=== PATIENT | male | born 1955 | race Caucasian/White ===

== ENCOUNTER 2019-08-18 20:58 | Emergency (ER) | payer MEDICARE, OTHER ==
[2019-08-18] MEDS ORDERED: Acetaminophen/oxyCODONE 325-5 MG Tab PO PRN (21:30)
--- NOTE | 2019-08-18 21:33 | EDM.PDOC ---
ED HPI GENERAL MEDICAL PROBLEM - General Chief Complaint: Upper Extremity Injury/Pain Stated Complaint: LEFT ARM INJURY FROM FALL Time Seen by Provider: 08/18/19 21:26 Source of Information: Reports: Patient, Family, RN Notes Reviewed History Limitations: Reports: No Limitations - History of Present Illness INITIAL COMMENTS - FREE TEXT/NARRATIVE: 64-year-old gentleman presents emergency department a complaint of left arm pain , he injured himself when he slipped on the ice leaving the gas station fell into his truck bumper had a bit of a twisting injury and fell predominantly on the humerus left arm, he has full range of motion of his digits is complaining of pain mid shaft sensation is intact no shoulder pain no head injury no loss of consciousness does admit to consuming alcohol this evening left upper arm pain Pain Score (Numeric/FACES): 9 - Related Data Allergies Allergy/AdvReac Type Severity Reaction Status Date / Time amoxicillin [From Augmentin] Allergy Facial Verified 08/18/19 21:15 Swelling clavulanic acid Allergy Facial Verified 08/18/19 21:15 [From Augmentin] Swelling Home Meds: Home Meds Aspirin 1 tab PO DAILY 08/18/19 [History] Diltiazem HCl [Diltiazem 24Hr Cd] 1 tab PO DAILY 08/18/19 [History] Furosemide [Lasix] 1 tab PO DAILY 08/18/19 [History] Propranolol [Inderal] 1 tab PO DAILY 08/18/19 [History] buPROPion [Wellbutrin] 1 tab PO DAILY 08/18/19 [History] Past Medical History Cardiovascular History: Reports: Afib, Heart Failure Respiratory History: Reports: COPD Musculoskeletal History: Reports: Fracture - Past Surgical History GI Surgical History: Reports: Hernia, Inguinal Social & Family History - Tobacco Use Smoking Status *Q: Never Smoker - Alcohol Use Alcohol Use History: Yes Number of Drinks Per Day: 2 Review of Systems - Review of Systems Review Of Systems: See Below Respiratory: Reports: No Symptoms Cardiovascular: Reports: No Symptoms GI/Abdominal: Reports: No Symptoms Musculoskeletal: Reports: Arm Pain ED EXAM, GENERAL - Physical Exam Exam: See Below Free Text/Narrative:: Examination of the left arm I do appreciate some bruising midshaft there is tenderness midshaft there is no tenderness at the shoulder no tenderness the elbow full range of motion of the wrist and all digits radial pulses +2 sensation is intact Exam Limited By: No Limitations General Appearance: Alert, WD/WN, No Apparent Distress Respiratory/Chest: No Respiratory Distress Course - Vital Signs Last Recorded V/S: Last Vital Signs Temp 96.7 F L 08/18/19 21:25 Pulse 75 08/18/19 21:25 Resp 16 08/18/19 21:25 BP 125/95 H 08/18/19 21:25 Pulse Ox 94 L 08/18/19 21:25 - Orders/Labs/Meds Orders: Active Orders 24 hr Category Date Time Status Humerus Lt [CR] Stat Exams 08/18/19 21:30 Taken Meds: Medications Discontinued Medications Generic Name Dose Route Start Last Admin Trade Name Freq PRN Reason Stop Dose Admin Oxycodone/Acetaminophen 1 tab 08/18/19 21:30 08/18/19 21:51 Percocet 325-5 Mg PO 1 tab ONETIME PRN Administration Pain Departure - Departure Time of Disposition: 21:56 Disposition: Home, Self-Care 01 Condition: Fair Clinical Impression: Left humeral fracture Qualifiers: Encounter type: initial encounter Humerus Location: proximal Fracture type: closed Fracture morphology: torus Qualified Code(s): S42.272A - Torus fracture of upper end of left humerus, initial encounter for closed fracture - Discharge Information Instructions: Humerus Fracture Treated With Immobilization, [id number] Referrals: PCP,None [Primary Care Provider] - Forms: ED Department Discharge Additional Instructions: Continue to use the shoulder immobilizer, use Percocet as needed for pain control, please contact your orthopedic provider on Tuesday, call or return to the emergency department worsening of symptoms Sepsis Event Note - Evaluation Sepsis Screening Result: No Definite Risk - Focused Exam Vital Signs: Vital Signs Temp Pulse Resp BP Pulse Ox 08/18/19 21:25 96.7 F L 75 16 125/95 H 94 L 08/18/19 21:12 96.7 F L 75 16 125/95 H 94 L Date Exam was Performed: 08/18/19 Time Exam was Performed: 21:54 - My Orders Last 24 Hours: My Active Orders 08/18/19 21:30 Humerus Lt [CR] Stat - Assessment/Plan Last 24 Hours: My Active Orders 08/18/19 21:30 Humerus Lt [CR] Stat Plan: Assessment Acuity = acute Site and laterality = left humeral head fracture Etiology = secondary to fall Manifestations = pain Location of injury = Home Lab values = x-ray describes fracture above Plan Prescription written for Percocet 5/325 1 tab p.o. 3 times daily PRN total #20 disc film was provided he will follow-up with his orthopedics upon return home in 2 days he is placed in the posterior splint This note was dictated using [employer] voice recognition software please call with any questions on syntax or grammar.
[2019-08-18] MEDS ORDERED: HYDROmorphone 1 MG/ML Syringe ONE (22:06)
[2019-08-18] MEDS ORDERED: HYDROmorphone 1 MG/ML Syringe IM ONE (23:04)
--- NOTE | 2019-08-20 09:36 | CR ---
Humerus Lt CLINICAL HISTORY: Pain, fall FINDINGS: There is a comminuted minimally displaced fracture the proximal humerus and greater tubercle IMPRESSION: Fracture proximal humerus.
== END 2019-08-18 23:08 | disposition home or self-care (01) ==
LOC: JP.ED 20:58
DX: S42.272A Torus fracture of upper end of left humerus, initial encounter for closed fracture (principal); I50.9 Heart failure, unspecified; J44.9 Chronic obstructive pulmonary disease, unspecified; Z88.0 Allergy status to penicillin; Z79.82 Long term (current) use of aspirin; W00.0XXA Fall on same level due to ice and snow, initial encounter; Y92.524 Gas station as the place of occurrence of the external cause
CPT/HCPCS: 29105; 73060; 96372; 99283; A9270; J1170

== ENCOUNTER 2024-06-27 04:55 | Emergency (ER) | payer MEDICARE, OTHER ==
[2024-06-27 05:39] LABS: BASOPHILS ABSOLUTE AUTO 0.03 K/uL (0.00-0.10); BASOPHILS PERCENT AUTO 0.3 % (0.1-1.3); EOSINOPHILS ABSOLUTE AUTO 0.04 K/uL (0.00-0.40); EOSINOPHILS PERCENT AUTO 0.3 % (0.0-5.4); HEMATOCRIT 45.9 % (38.4-49.7); HEMOGLOBIN 15.5 g/dL (12.9-16.9); IMMATURE GRAN ABSOLUTE AUTO 0.04 K/uL (0.00-0.23); IMMATURE GRAN PERCENT AUTO 0.3 % (0.0-0.7); LYMPHOCYTES ABSOLUTE AUTO 1.02 K/uL (0.8-3.3); LYMPHOCYTES PERCENT AUTO 8.7 % (11.4-47.7); MEAN CORPUSCULAR HEMOGLOBIN 31.1 pg (31.6-35.5); MEAN CORPUSCULAR HGB CONC 33.8 g/dL (31.6-35.5); MEAN CORPUSCULAR VOLUME 92.2 fL (81.4-99.0); MONOCYTES ABSOLUTE AUTO 0.87 K/uL (0.20-0.90); MONOCYTES PERCENT AUTO 7.4 % (3.3-12.6); NEUTROPHILS ABSOLUTE AUTO 9.72 K/uL (1.0-7.6); PLATELET COUNT,PLT 146 K/uL (130-375); RED BLOOD CELL COUNT 4.98 M/uL (4.14-5.76); WHITE BLOOD CELL COUNT,WBC 11.7 K/uL (3.2-11.0)
[2024-06-27] MEDS: Albuterol 0.083% 2.5 MG/3 ML Neb Soln NEB ONE (05:42)
[2024-06-27] MEDS: Oseltamivir 75 MG Cap PO ONE (05:42)
[2024-06-27 06:00] LABS: A/G RATIO 0.9 (1.2-2.2); ALANINE AMINOTRANSFERASE,ALT 21 U/L (12-78); ALBUMIN 3.5 g/dL (3.4-5.0); ALKALINE PHOSPHATASE 72 U/L (46-116); ANION GAP 10.8 mmol/L (5.0-14.0); ASPARTATE AMNIOTRANSFERASE,AST 26 U/L (15-37); BILIRUBIN TOTAL 0.5 mg/dL (0.2-1.0); BLOOD UREA NITROGEN,BUN 22 mg/dL (7-18); CALCIUM 8.8 mg/dL (8.5-10.1); CARBON DIOXIDE,CO2 29 mmol/L (21-32); CHLORIDE,CL 95 mmol/L (100-108); CREATININE 1.3 mg/dL (0.8-1.3); EST CRCL DRUG DOSING (CG) 49.43 mL/min; ESTIMATED GFR 59 mL/min (>60); GLUCOSE RANDOM 139 mg/dL (74-106); POTASSIUM,K 4.8 mmol/L (3.6-5.2); PROTEIN TOTAL,TP 7.3 g/dL (6.4-8.2); SODIUM,NA 130 mmol/L (140-148)
[2024-06-27] MEDS: Benzonatate 100 MG Cap PO ONE (06:36)
== END 2024-06-27 06:55 | disposition home or self-care (01) ==
LOC: JP.ED 04:55
DX: J10.1 Influenza due to other identified influenza virus with other respiratory manifestations (principal); I50.9 Heart failure, unspecified; I48.91 Unspecified atrial fibrillation; J44.9 Chronic obstructive pulmonary disease, unspecified; Z86.16 Personal history of COVID-19; Z95.5 Presence of coronary angioplasty implant and graft; Z87.891 Personal history of nicotine dependence; Z79.01 Long term (current) use of anticoagulants; Z79.899 Other long term (current) drug therapy; Z88.0 Allergy status to penicillin
CPT/HCPCS: 36415; 71046; 80053; 83880; 85025; 87428; 94640; 99284; A9270